=== PATIENT | male | born 1995 | race Caucasian/White ===

== ENCOUNTER 2020-12-26 12:54 | Emergency (ER) | payer MEDICAID ==
[~2020-12-26] VITALS: Ht 172.7 cm; Wt 93.2 kg
[~2020-12-26 12:54] MED LIST: CYCL-1 PO; IBUP-1984 PO; NAPR-56 PO; NO HOME MEDS; PSEU-225 PO
[2020-12-26 13:12] VITALS: BP 137/71
== END 2020-12-26 15:00 | disposition left against medical advice (07) ==
LOC: ER 12:55
DX: T75.89XA Other specified effects of external causes, initial encounter (principal); R06.02 Shortness of breath; R51.9 Headache, unspecified; J02.9 Acute pharyngitis, unspecified; J45.909 Unspecified asthma, uncomplicated; Z98.890 Other specified postprocedural states; Z79.899 Other long term (current) drug therapy; Y93.G2 Activity, grilling and smoking food; Y93.89 Activity, other specified; Y92.89 Other specified places as the place of occurrence of the external cause; Y99.8 Other external cause status
CPT/HCPCS: 71046; 99283

== ENCOUNTER 2024-03-23 04:02 | Emergency (ER) | payer MEDICAID ==
[~2024-03-23] VITALS: Ht 172.7 cm; Wt 83.0 kg
[2024-03-23 04:05] VITALS: TEMP 98.1
[2024-03-23] MEDS: ketorolac trometh 15mg/ml vial 15 MG/ML ML IM ONE ×2 (05:15)
[2024-03-23 05:27] VITALS: BP 106/71; PULSE 65; RESP 18; O2SAT 99
== END 2024-03-23 05:57 | disposition home or self-care (01) ==
LOC: ER 04:02
DX: S29.012A Strain of muscle and tendon of back wall of thorax, initial encounter (principal); J45.909 Unspecified asthma, uncomplicated; Z79.899 Other long term (current) drug therapy; X58.XXXA Exposure to other specified factors, initial encounter; Y93.89 Activity, other specified; Y92.89 Other specified places as the place of occurrence of the external cause; Y99.8 Other external cause status
CPT/HCPCS: 96372; 99283; J1885